=== PATIENT | male | born 1955 | race Caucasian/White ===

== ENCOUNTER 2022-10-05 16:48 | Emergency (ER) | payer MEDICARE, SELFPAY ==
[2022-10-05 17:03] VITALS: BP 137/78; PULSE 87; RESP 24; TEMP 37.9; O2SAT 95; BMI 30.1
[2022-10-05 17:54] LABS: PCR FLU A POSITIVE PCR FLU A (Negative); PCR FLU B Negative PCR FLU B (Negative); PCR RSV Negative PCR RSV (Negative)
[2022-10-05 17:56] LABS: SARS PCR* Negative SARS-CoV-2 (Negative)
--- NOTE | 2022-10-06 09:55 | ED.NURSE ---
attempted to call the patient for the second time. called the phone number in the chart and the phone message unable to leave a message then hung up. Unable to give the results of the positive influenza A.
== END 2022-10-05 19:27 | disposition left against medical advice (07) ==
DX: R05.9 Cough, unspecified (principal); R50.9 Fever, unspecified; Z53.21 Procedure and treatment not carried out due to patient leaving prior to being seen by health care provider
CPT/HCPCS: 87502; 87634; 87635; 99282

== ENCOUNTER 2025-04-16 08:58 | Emergency (ER) | payer MEDICARE, SELFPAY ==
[2025-04-16] VITALS (27 sets, daily range): BP systolic 103–133; BP diastolic 61–89; PULSE 73–103; RESP 13–22; TEMP 36.4; O2SAT 93–97; BMI 31.6
--- OUTSIDE RECORDS SUMMARY | 2025-04-16 09:09 | XMS_ITS | Clinical Summary ---
Author Organization [facility] Address [address] [place] [id number] Care Team Providers Care Car Worker Name Role Phone Nani Tran Mary Primary Care Provider [phone] Sherry Rueda MBBS Unavailable [phone] Allergies No known active allergies Medications aspirin (ECOTRIN) 81 mg enteric coated tabletIndication s:STEMI involving left anterior descending coronary artery (HC) Take 1 Tablet (81 mg) by mouth once daily. 90 Tablet 3 03/22/20 24 Active nitroglycerin (NITROSTAT) 0.4 mg sublingual tabletIndication s:STEMI involving left anterior descending coronary artery (HC) Place 1 Tablet (0.4 mg) under the tongue every 5 minutes if needed for Chest Pain (Up to 3 doses). 25 Tablet 2 03/22/20 24 Active metoprolol succinate (Toprol XL) 25 mg Sustained-Releas e tabletIndication s:Coronary artery disease, unspecified vessel or lesion type, unspecified whether angina present, unspecified whether [place] or transplanted heart Take 1 Tablet (25 mg) by mouth once daily. 90 Tablet 3 05/04/20 24 Active isosorbide mononitrate (IMDUR) 30 mg extended release tablet 24 HourIndications: Coronary artery disease, unspecified vessel or lesion type, unspecified whether angina present, unspecified whether [place] or transplanted heart Take 1 Tablet (30 mg) by mouth once daily. 90 Tablet 3 05/04/20 24 Active rosuvastatin 40 mg tabletIndication s:STEMI involving left anterior descending coronary artery (HC) TAKE ONE TABLET BY MOUTH EVERY DAY 60 Tablet 04/11/20 25 Active rosuvastatin (Crestor) 40 mg tabletIndication s:STEMI involving left anterior descending coronary artery (HC) Take 1 Tablet (40 mg) by mouth once daily. 90 Tablet 3 03/22/20 24 025 Discontinued Active Problems Problem Noted Date Diagnosed Date CAD (coronary artery disease) 04/04/2024 S/P coronary angiogram 04/04/2024 Chronic obstructive pulmonar y disease, unspecified COPD type 06/13/2023 ASHD (arteriosclerotic heart disease) 04/28/2020 Overview (04/28/2020): Coronary angiogram for anterior STEMI 04/27/20: s/p MURTAZA x1 to mLAD Sebaceous cyst of scrotum 11/22/2016 Adenomatous colon polyp 02/27/2014 Overview (01/10/2017): Colonoscopy 02/2014 polyps repeat in 1-2 years Colonoscopy 12/2016 hyperplastic polyp repeat in 5 years Dyslipidemia 05/28/2013 Plantar fasciitis 05/28/2013 Low testosterone 05/28/2013 Tinnitus 05/28/2013 Hearing loss in right ear 04/30/2013 Inguinal hernia, left 02/16/2010 Adjustment disorder with anxiety 04/26/2008 Smoker Family history of prostate cancer STEMI involving left anterior descending coronar y artery Resolved Problems Problem Noted Date Diagnosed Date Resolved Date Ankle pain, chronic 05/28/2013 11/21/19 15 Dyslipidemia 04/30/2013 11/21/2014 Ankle fracture 11/06/2010 08/06/2011 Encounters Date Type Department Care Team Description 04/10/2025 Refill [facility] [address] [place] [address] Sherry Rueda MBBS Refill Request (Rosuvastatin) from Last 3 Months Immunizations Immunization Administration Dates Next Due COVID-19 vaccine (Moderna 100mcg/0.5mL) MELLY 01/15/2021,12/18/2020 Td (Age >=7 Years) 09/20/2003 Tdap 04/30/2013 Zoster (Zostavax-ZVL, live) 03/05/2014 Family History Medical History Relation Name Comments Cancer-prostate Brother 2 half-brother Good Health Daughter Cancer Father unsure primary; spread to brain and lung possibly was stomach primary Other Father colon polyps Cancer-breast Mother Heart Disease Paternal Uncle mi in mid 50 's Good Health Sister 2 Relation Name Status Comments Brother 1 (Age 70) prostate c a Brother 2 Daughter Father (Age 80) Mother (Age 81) Paternal Uncle Sister 1 Alive Sister 2 Social History Tobacco Use Types Packs/Day Years Used Date Smoking Tobacco: Former Cigarettes 0.1 48 1 - 08/12/2021 Smokeless Tobacco: Never Tobacco Cessation:Counseling Given: Yes Alcohol Use Standard Drinks/Week Comments Yes 0 (1 standard drink = 0.6 oz pur e alcohol) rarely PHQ-2 Answer Date Recorded PHQ-2 TOTAL SCORE 0 10/10/2024 Social Connections Answer Date Recorded Do you often feel lonely or isolated from those around you? 0 10/10/2024 Financial Resource Strain Answer Date R ecorded Difficulty of Paying Living Expenses 3 10/10/2024 Difficulty of Paying Living Expenses Not on file 10/10/2024 Food Insecurity Answer Date Recorded Do you worry your food will run out before you are able to buy more? 1 10/10/2024 Transportation Needs Answer Date Record ed Does lack of transportation keep you from medica l appointments? 1 10/10/2024 Does lack of transportation keep you from work, meetings or getting things that you need? 1 10/10/2024 Housing Stability Answer Date Recorded What is your housing situation today? 1 10/10/2024 Utilities Answer Date Recorded Do you have trouble paying f or utilities (for example, heat, electricity, water, phone)? 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 Not on file Not on file Not on f ile Obstetrics History Last Filed Vital Signs Vital Sign Reading Time Taken Comments Blood Pressure 136/83 10/10/2024 7:44 AM NIGHT SHIFT SUPERVISOR Pulse 75 10/10/2024 7:44 AM NIGHT SHIFT SUPERVISOR Temperature 36.9 C (98.4 F) 10/10/2024 7:44 AM NIGHT SHIFT SUPERVISOR Respiratory Rate 16 05/04/2024 8:32 AM CDT Oxygen Saturation 96% 10/10/2024 7:44 AM NIGHT SHIFT SUPERVISOR Inhaled Oxygen Concentration - - Weight 97.2 kg (214 lb 4.8 oz) 10/10/2024 7:44 A M NIGHT SHIFT SUPERVISOR Height 173.5 cm (5' 8.31) 10/10/2024 7:44 AM CS T Body Mass Index 32.29 10/10/2024 7:44 AM NIGHT SHIFT SUPERVISOR Plan of Treatment Health Maintenance Due Date Last Done Comments Pneumococcal series for age 50+ (1 of 2 - PCV) 1973 Zoster (shingles) series for age 50+ (2 of 3) 04/30/2014 03/05/2014 RSV vaccine for adults or (1 - Risk 60-74 years 1-dose series) 2014 AAA screening age 65-74 2019 Colonoscopy through age 75 01/07/202201/07, 01/07/2017, 02/26/2014, Additional history exists Tetanus booster 04/30/2023 04/30/2013, 09/20/2003 COVID-19 vaccine series ( season) 2024 10/15/2021, 01/15/2021, 12/18/2020 Influenza Vaccine (Season Ended) 2025 BMI (ht and wt on same day) for age 18+ 10/10/2025 10/10/2024, 05/04/2024, 03/22/2024, Additional history exists Depression screening for age 12+ 10/10/2025 10/10/2024, 06/13/2023, 04/23/2022, Additional history exists Medicare Wellness for age 65+ 10/11/2025 10/10/2024, 06/13/2023 Lipids for age 45-75 10/10/2029 10/10/2024, 04/03/2024, 03/22/2024, Additional history exists Tdap Completed 04/30/2013 Hepatitis C screening for age 18-79 Completed 06/13/2023 Hepatitis B series for 19+ Aged Out N o longer eligible based on patient's age to complete this topic Medical Devices Implanted Type Area Ensemble Member Device Identifier Shelf Expiration Date Model / Serial / Lot Plate 3 Tubular 61mm 5 Hole W/Collar 241.35 Synthe - [id number] Implanted:Qty : 1 on 11/06/2010 at [facility] Imp.,Screw s & Plates Left: Ankle Depuy AIT 241.35# / / / [id number] Screw Cortex 3.5x16mm Self Tapping 204.816 Synthes - [id number] Implanted:Qty : 1 on 11/06/2010 at [facility] Left: Ankle Depuy AIT 204.816# / / [id number] Screw Cortex 3.5x18mm Self Tapping 204.818 Synthes - [id number] Implanted:Qty : 1 on 11/06/2010 at [facility] Left: Ankle Depuy AIT 204.818# / / / [id number] Screw Cortex 3.5x20mm Self Tapping 204.820 Synthes - [id number] Implanted:Qty : 2 on 11/06/2010 at [facility] Left: Ankle Depuy AIT 204.820# / / [id number] Screw Canclls 4.0x16mm Full Thread 206.016 Synt - [id number] Implanted:Qty : 1 on 11/06/2010 at [facility] Left: Ankle Depuy AIT 206.016# / / [id number] Procedures Procedure Name Priority Date/Time Associated Diagnosis Comments LIPID PANEL W REFLEX MEASURED LDL Routine 10/10/2024 9:00 AM NIGHT SHIFT SUPERVISOR Screening cholesterol level LC HCV ANTIBODY RFX TO QUANT PCR Routine 06/13/2023 5:03 PM CDT Need for hepatitis C screening test COLONOSCOPY 01/07/2017 11:02 AM CDT from Last 3 Months or Most Recently Relevant to Health Maintenance Results * (ABNORMAL) LIPID PANEL W REFLEX MEASURED LDL (10/10/2024 9:00 AM NIGHT SHIFT SUPERVISOR) CHOLESTEROL, TOTAL 78 <200 mg/dL [facility] HDL CHOLESTEROL 25(L) > OR = 40 mg/dL [facility] TRIGLYCERIDES 127 <150 mg/dL [facility] LDL-CHOLESTEROL 32 mg/dL (calc) [facility] Comment: Reference range: <100 Desirable range <100 mg/dL for primary prevention; <70 mg/dL for patients with CHD or diabetic patients with > or = 2 CHD risk factors. LDL-C is now calculated using the Esa calculation, which is a validated novel method providing better accuracy than the Friedewald equation in the estimation of LDL-C. Jonathon SS et al. IOANA. 2013;310(44): 3473-2913 (http://education.Ferfics/faq/KHA695) CHOL/HDLC RATIO 3.1 <5.0 (calc) [facility] NON HDL CHOLESTEROL 53 <130 mg/dL (calc) [facility] Comment: For patients with diabetes plus 1 major ASCVD risk factor, treating to a non-HDL-C goal of <100 mg/dL (LDL-C of <70 mg/dL) is considered a therapeutic option. Blood BLOOD SPECIMEN / Unknown 10/10/2024 9:00 AM NIGHT SHIFT SUPERVISOR 10/10/2024 9:05 AM NIGHT SHIFT SUPERVISOR Andrew Davis MD CHEMISTRY Final Re sult Link Trigger [facility] [address] [place] [address], [facility] [address] [place] [address] * LC HCV ANTIBODY RFX TO QUANT PCR (06/13/2023 5:03 PM CDT) HCV Ab Non Reactive Non Reactive 06/16/2023 1:09 PM CDT [facility] Blood BLOOD SPECIMEN / Unknown Add On / Unknown 06/13/2023 5:03 PM CDT 06/14/2023 9:02 AM CDT Narrative [facility] - 06/16/2023 1:09 PM CDT Performed at: [facility] [address] [facility], [place], [place] [id number] Purification Operator Helper: Arcadio Mcgraw MD, Phone: [phone] us Denisha Haq Regis [employer]EL[employer] LAB[employer]AT[employer] F inal Result [facility] [place] [address], * COLONOSCOPY (01/07/2017 11:02 AM CDT) 01/07/2017 11:0 2 AM CDT Narrative Transcriptions Jonathon Vaz MD - 01/07/2017 12:01 PM CDT Patient Name: Kristopher Woods Procedure Date: 01/07/2017 Gender: Male Date of : 1955 Admit Type: Outpatient Procedure: Colonoscopy Proceduralist: Jonathon Vaz MD , Odalys Hawkins (Nurse) Indications/Pre-Op Diagnosis: Surveillance: Personal history ofadenomatous polyps on last colonoscopy > 3 years ago Medications: None Procedure Description: The patient had risks, benefits and alternatives explained to andgave informed consent. The patient had a stable cardiopulmonary status and judged an adequate candidate for conscious sedation. The [id number] was passed through the anus and advanced tothe cecum, identified by appendiceal orifice and ileocecal valve. The colonoscopy was performed without difficulty. The patient toleratedthe procedure well. The quality of the bowel preparation was excellent.The ileocecal valve, appendiceal orifice, and rectum were photographed. Complications: No immediate complications. Estimated Blood Loss & Specimen: Estimated blood loss: none. Specimen collected - Yes and sent to Laboratory Findings: The perianal and digital rectal examinations were normal. A 2 mm polyp was found in the sigmoid colon. The polyp was sessile.The polyp was removed with a cold biopsy forceps. Resection and retrieval were complete. The exam was otherwise without abnormality on direct and retroflexion views. Impressions/Post-Op Diagnosis: - One 2 mm polyp in the sigmoid colon, removed with a cold biopsy forceps. Resected and retrieved. - The examination was otherwise normal on direct and retroflexionviews. Recommendation: - Patient has a contact number available for emergencies. The signsand symptoms of potential delayed complications were discussed with the patient. Return to normal activities tomorrow. Written discharge instructions were provided to the patient. - Resume previous diet. - Continue present medications. - Await pathology results. - Repeat colonoscopy in 5 years for surveillance. - For future colonoscopy the patient will require an extended preparation. If there are any questions, please contact the facilities manager. Moderate Sedation: None Jonathon Vaz MD 01/07/2017 12:01:23 PM This report has been signed electronically. Note Initiated On: 01/07/2017 11:02 AM Procedure Code(s): --- Professional --- 72825, Colonoscopy, flexible; with biopsy, single or multiple Diagnosis Code(s): --- Professional --- Z86.010, Personal history of colonicpolyps D12.5, Benign neoplasm of sigmoid colon CPT copyright 2016 [employer]. All rights reserved. The codes documented in this report are preliminary and upon underwriting assistant reviewmay be revised to meet current compliance requirements. Scope In: 11:35:13 AM Scope Withdrawal Time 0 hours 11 minutes 58 seconds Scope Out: 11:55:46 AM us Jonathon Vaz MD PROCEDURE ORD Final Res ult from Last 3 Months or Most Recently Relevant to Health Maintenance Insurance MEDICARE PART A HB ONLY MEDICARE ADVANTAGE MR [facility] Advance Directives * Full Code (Latest Code Status on File) Date Activated Date Inactivated Comments 04/03/2024 4:50 PM 04/03/2024 9:25 PM Question Answer Comments Code Status Discussion: Reviewed Preferences * Full Code Date Activated Date Inactivated Comments 04/27/2020 8:43 PM 04/30/2020 1:13 PM * Full Code Date Activated Date Inactivated Comments 11/06/2010 9:29 AM 11/06/2010 7:21 PM * Full Code Date Activated Date Inactivated Comments 11/06/2010 7:26 AM 11/06/2010 9:29 AM Care Teams Car Worker Relationship Specialty Start Date End Date Nani Tran DO [address] [place] [address] PCP - General Family Practice 04/23/22 Sherry Rueda MBBS [address] [place] [address] Cardiovascular Disease 05/03/24
--- NOTE | 2025-04-16 09:23 | XR_ITS ---
Patient: LION LEROY Facility:?[facility] Patient ID:?[id number] Site Patient ID:?[id number]. Site :?1955 Study:?XRay-Chest 2V-04/16/2025 10:06:17 AM Ordering Physician:Rozina Pinto Final Report: INDICATION: Chest pain. TECHNIQUE: Chest 2 views. COMPARISON: 04/27/2020. FINDINGS: Lungs and pleural spaces: No consolidation. No pleural effusion. No pneumothorax. Cardiovasculature and mediastinum: Heart size and mediastinal contours are normal. IMPRESSION: No acute cardiopulmonary abnormality. Dictated by Michael Covington MD @ 04/16/2025 10:18:10 AM Signed by:?Michael Covington MD @04/16/2025 10:18:10 AM (Electronic Signature)
--- NOTE | 2025-04-16 09:38 | ED_ITS ---
HPI - Arrhythmia/Palpitations General Date Seen: 04/16/25 Chief Complaint: Arrhythmia/Palpitations Stated Complaint: heart racing- some shortness of breath Time Seen by Provider: 04/16/25 09:07 Source: patient Mode of arrival: ambulatory Limitations: no limitations History of Present Illness HPI narrative: Patient is a very nice 69-year-old gentleman who presents here with a racing heart, he woke up this morning with the racing heart approximately at 7:00 a.m., was associated with some sweet sweating and feeling short of breath, this is now resolved, he has been out of metoprolol for the last 3 days which she normally takes, chronically. He says he just for got to renew the prescription. He did take 1 nitroglycerin this morning, noted this may have helped his discomfort. Has a history of 5 years ago of a heart attack he describes. Has been good otherwise no exertional chest pain no leg swelling, no cough, no hemoptysis, no past history DVT or pulmonary embolisms, other than the metoprolol he has been taking his medications normally. Denies any significant use of alcohol, or dehydration. He did not have any chest pain with this. Did not know if his heart was irregular or regular. MD complaint: heart racing and palpitations Onset (ago): hour(s) Duration: now resolved Severity: moderate Context: awoke with symptoms Associated symptoms: shortness of breath and diaphoresis Treatments prior to arrival: other Related Data Home Medications ?Medication ?Instructions ?Recorded ?Confirmed atorvastatin 80 mg tablet 40 mg 10/05/22 clopidogrel 75 mg tablet mg 10/05/22 lisinopril 5 mg tablet mg 10/05/22 metoprolol succinate 25 mg 25 mg PO 10/05/22 tablet,extended release 24 hr aspirin 81 mg tablet,delayed 81 mg PO DAILY 04/16/25 0 04/16/25 release (Adult Aspirin Regimen) isosorbide mononitrate 30 mg 30 mg PO DAILY 04/16/25 0 04/16/25 tablet,extended release 24 hr rosuvastatin 40 mg tablet 40 mg PO DAILY 04/16/2503/25 Previous Rx's ?Medication ?Instructions ?Recorded metoprolol succinate 25 mg capsule 25 mg PO DAILY #30 ea 04/16/25 sprinkle, ext. release 24 hr Allergies Allergy/AdvReac Type Severity Reaction Status Date / Time No Known Drug Allergies Allergy Verified 10/05/22 17:07 Review of Systems Status of ROS: Reports: 10 or more systems reviewed and unremarkable except as noted in History and below [facility] Social History Smoking Status: Current some day smoker How often do you have a drink containing alcohol: monthly or less AUDIT-C Alcohol total score: 1 Non-prescribed substance use: denies use Exam Narrative: Exam Narrative: On examination in room 5 he is in no apparent distress he is pleasant alert pupils equal round reactive to light there is no scleral icterus redness TMs are normal oropharynx normal there is no adenopathy anterior posterior chains, chest is good air entry bilaterally no wheezing crackles noted heart sounds are normal his abdomen is soft and obese there is no guarding no organomegaly bowel sounds are normal moves all extremities independently and well, no edema, skin reveals no petechiae rashes. And neurologically intact his upper lower extremities moving all extremities well, cranial nerves 3-12 are normal. Nontoxic, Const: Vital Signs, click to edit/add: Vital Signs - 24 hr 04/16/25 09:05 04/16/25 09:19 04/16/25 09:22 Temperature 97.5 F L Pulse Rate 100 101 H Pulse Rate [Pulse Oximeter] 103 H Respiratory Rate 18 Blood Pressure 111/61 103/79 Blood Pressure [Ri ght Upper Arm] 128/71 Pulse Oximetry 96 96 93 Oxygen Delivery Me thod Room Air 04/16/25 09:23 04/16/25 09:30 04/16/25 09:42 Temperature Pulse Rate 99 100 Pulse Rate [Pulse Oximeter] Respiratory Rate 14 22 Blood Pressure 106/73 Blood Pressure [Ri ght Upper Arm] Pulse Oximetry 94 94 94 Oxygen Delivery Me thod 04/16/25 09:45 04/16/25 10:03 04/16/25 10:04 Temperature Pulse Rate 99 98 96 Pulse Rate [Pulse Oximeter] Respiratory Rate 16 20 17 Blood Pressure 133/85 Blood Pressure [Ri ght Upper Arm] Pulse Oximetry 95 93 96 Oxygen Delivery Me thod 04/16/25 10:15 04/16/25 10:22 04/16/25 10:30 Temperature Pulse Rate 97 97 93 Pulse Rate [Pulse Oximeter] Respiratory Rate 13 19 Blood Pressure 121/75 Blood Pressure [Ri ght Upper Arm] Pulse Oximetry 95 96 94 Oxygen Delivery Me thod 04/16/25 10:41 04/16/25 10:45 04/16/25 11:00 Temperature Pulse Rate 91 90 90 Pulse Rate [Pulse Oximeter] Respiratory Rate 19 16 Blood Pressure 121/87 Blood Pressure [Ri ght Upper Arm] Pulse Oximetry 94 94 96 Oxygen Delivery Me thod 04/16/25 11:02 04/16/25 11:15 04/16/25 11:22 Temperature Pulse Rate 88 83 79 Pulse Rate [Pulse Oximeter] Respiratory Rate 20 Blood Pressure 117/81 111/88 Blood Pressure [Ri ght Upper Arm] Pulse Oximetry 93 93 95 Oxygen Delivery Me thod 04/16/25 11:23 04/16/25 11:30 04/16/25 11:42 Temperature Pulse Rate 80 78 76 Pulse Rate [Pulse Oximeter] Respiratory Rate 14 15 15 Blood Pressure 129/89 Blood Pressure [Ri ght Upper Arm] Pulse Oximetry 93 93 94 Oxygen Delivery Me thod 04/16/25 11:45 04/16/25 12:00 04/16/25 12:02 Temperature Pulse Rate 76 73 73 Pulse Rate [Pulse Oximeter] Respiratory Rate 16 Blood Pressure 113/83 Blood Pressure [Ri ght Upper Arm] Pulse Oximetry 96 97 96 Oxygen Delivery Me thod 04/16/25 12:15 04/16/25 12:22 04/16/25 12:30 Temperature Pulse Rate 73 74 74 Pulse Rate [Pulse Oximeter] Respiratory Rate 14 Blood Pressure 105/79 Blood Pressure [Ri ght Upper Arm] Pulse Oximetry 95 94 95 Oxygen Delivery Me thod Course Course ED Course: [place] remains pain-free showed shortness of breath is gone, vital signs remain stable, we given a dose of metoprolol here, his troponins are normal x2. I think it is likely that this is because he missed his medications I have given a prescription for 30 days and will have him follow-up with his regular physician. Vital Signs Vital signs: Initial Vital Signs Temperature 97.5 F L 04/16/25 09:05 Temperature Source Temporal Artery Scan 04/16/25 09:05 Pulse Rate 103 H 04/16/25 09:05 Respiratory Rate 18 04/16/25 09:05 Blood Pressure 128/71 04/16/25 09:05 Blood Pressure Mean 90 04/16/25 09:05 Pulse Oximetry 96 04/16/25 09:05 Oxygen Delivery Method Room Air 04/16/25 09:05 Vital Signs Temperature 97.5 F L 04/16/25 09:05 Pulse Rate 103 H 04/16/25 09:05 Respiratory Rate 18 04/16/25 09:05 Blood Pressure 128/71 04/16/25 09:05 Pulse Oximetry 96 04/16/25 09:05 Oxygen Delivery Method Room Air 04/16/25 09:05 Temperature 97.5 F L 04/16/25 09:05 Pulse Rate 74 04/16/25 12:30 Respiratory Rate 14 04/16/25 12:15 Blood Pressure 105/79 04/16/25 12:22 Pulse Oximetry 95 04/16/25 12:30 Oxygen Delivery Method Room Air 04/16/25 09:05 Medications Administered Medications: Discontinued Medications Generic Name Dose Route Start Last Admin Trade Name Freq PRN Reason Stop Dose Admin Aspirin 324 mg 04/16/25 09:23 04/16/25 09:45 Aspirin 81 Mg Tab.Chew PO 04/16/25 09:24 324 mg ONCE ONE Administration Sodium Chloride 1,000 mls @ 1,000 mls/hr 04/16/25 09:30 04/16/25 10:50 0.9 % Sodium Chloride 1000 Ml IV 04/16/25 10:29 Infused .Q1H KAIA Infusion Metoprolol Succinate 25 mg 04/16/25 10:14 04/16/25 10:25 Metoprolol Succinate (Xl) 25 Mg Tab PO 04/16/25 10:15 25 mg ONCE ONE Administration MDM - Arrhythmia/Palpitations MDM Narrative Medical decision making narrative: Differential diagnosis includes but is not limited to psychosocial stress, thyroid abnormalities, CHF, SVT, atrial fibrillation, ventricular tachycardia and ventricular fibrillation. This includes the life-threatening complications of heart failure, V-tach, and VFib Medical Records Attestation: I reviewed the patient's medical records. Lab Data Attestation: I reviewed the patient's lab results. Labs: Lab Results 04/16/25 04/16/25 Range/Units 09:23 09:30 WBC 8.90 (4.50-11.00) K/uL RBC 5.13 (4.30-5.90) m/uL Hgb 15.3 (13.5-17.5) gm/dL Hct 46.7 (37.0-53.0) % MCV 91 (80-100) fL MCH 30 (26-34) pg MCHC 33 (32-36) gm/dL RDW Coeff of Jonathan 13.0 (11.5-15.5) % Plt Count 256 (140-440) K/uL Neut % (Auto) 66.5 (42.0-72.0) % Lymph % (Auto) 21.7 (20-44) % Sherman % (Auto) 5.6 (0.0-11.0) % Eos % (Auto) 5.5 (0.0-7.0) % Baso % (Auto) 0.6 (0.0-3.0) % Neut # (Auto) 5.92 (1.7-7.0) K/uL Lymph # (Auto) 1.93 (0.90-2.90) K/uL Sherman # (Auto) 0.50 (0.00-0.90) K/UL Eos # (Auto) 0.49 (0.00-0.50) K/uL Baso # (Auto) 0.05 (0.00-0.30) K/uL Abs Immat Gran (auto) 0.01 (0.00-0.30) K/uL Imm/Tot Granulo (auto) 0.1 % INR 0.89 L (0.91-1.10) APTT 27 (23-33) Seconds D-Dimer Quant (PE/DVT) 0.63 H (0.00-0.50) ug/ml Sodium 135 (135-149) mmol/L Potassium 4.3 (3.6-5.1) mmol/L Chloride 103 (96-114) mmol/L Carbon Dioxide 24 (20-32) mmol/L Anion Gap 8 (7-15) mEq/L BUN 13 (7-30) mg/dL Creatinine 1.2 (0.5-1.5) mg/dL Estimated Creat Clear 59.14 Estimated GFR 65 ml/min Glucose 212 H (60-115) mg/dL Calcium 9.0 (8.4-10.6) mg/dL NT-Pro-B Natriuret Pep 88 (See Note) pg/mL POC Troponin I 0.00 L (0.01-0.04) ng/ml Imaging Data Chest x-ray: Attestation: I have reviewed the pertinent imaging results. My impression: No acute finding ECG Data Attestation: I personally reviewed and interpreted this ECG as follows: ECG interpretation date: 04/16/25 Interpretation: Initial EKG shows normal sinus rhythm, with a ventricular rate of 99. Mild left axis deviation is noted, poor R-wave progression is noted across the precordial leads, QRS is 88 milliseconds QT is 352 and QTC is 452, no acute ST wave changes. 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 Follow-up EKG shows no acute findings. Discharge Plan Discharge Clinical Impression: Palpitations Patient Disposition: Home, Self-Care Condition: Stable Instructions: Heart Palpitations (DC) Additional Instructions: Home, rest and use of the medications, There was no evidence of problems on the testing, I suspect a lot of this is because of being off the metoprolol. Activity Level: Light activity Prescriptions: New metoprolol succinate 25 mg capsule,sprinkle,ER 24hr 25 mg PO DAILY Qty: 30 0RF No Action atorvastatin 80 mg tablet 40 mg Patient Comments: TAKE ONE TABLET BY MOUTH EVERY EVENING clopidogrel 75 mg tablet Patient Comments: TAKE ONE TABLET BY MOUTH EVERY MORNING lisinopril 5 mg tablet Patient Comments: TAKE ONE TABLET BY MOUTH EVERY DAY metoprolol succinate 25 mg tablet extended release 24 hr 25 mg PO Patient Comments: TAKE THREE TABLETS BY MOUTH EVERY DAY rosuvastatin 40 mg tablet 40 mg PO DAILY isosorbide mononitrate 30 mg tablet extended release 24 hr 30 mg PO DAILY aspirin [Adult Aspirin Regimen] 81 mg tablet,delayed release (DR/EC) 81 mg PO DAILY Follow Up/Referrals: Provider,Not a Local [Primary Care Provider, Family Practice] Stand Alone Forms: [employer] Info Instructions
[2025-04-16 09:43] LABS: Basophils Absolute Auto 0.05 K/uL (0.00-0.30); Basophils Percent Auto 0.6 % (0.0-3.0); Eosinophils Absolute Auto 0.49 K/uL (0.00-0.50); Eosinophils Percent Auto 5.5 % (0.0-7.0); Hematocrit 46.7 % (37.0-53.0); Hemoglobin* 15.3 gm/dL (13.5-17.5); Immature Granulocytes Abs Auto 0.01 K/uL (0.00-0.30); Immature Granulocytes Pct Auto 0.1 %; Lymphocytes Absolute Auto 1.93 K/uL (0.90-2.90); Lymphocytes Percent Auto 21.7 % (20-44); Mean Corpuscular HGB Conc 33 gm/dL (32-36); Mean Corpuscular Hemoglobin 30 pg (26-34); Mean Corpuscular Volume 91 fL (80-100); Monocytes Percent Auto 5.6 % (0.0-11.0); Neutrophils Absolute Auto 5.92 K/uL (1.7-7.0); Neutrophils Percent Auto 66.5 % (42.0-72.0); Platelet Count* 256 K/uL (140-440); Red Blood Count 5.13 m/uL (4.30-5.90); Slide Review Reflex No
[2025-04-16] MEDS: 0.9 % SODIUM CHLORIDE 1000 ml 1,000 ML IV (09:45)
[2025-04-16] MEDS: ASPIRIN 81 MG TAB.CHEW 324 MG PO (09:45)
[2025-04-16 09:58] LABS: Chloride* 103 mmol/L (96-114); Potassium* 4.3 mmol/L (3.6-5.1); Sodium* 135 mmol/L (135-149)
[2025-04-16 10:01] LABS: Anion Gap 8 mEq/L (7-15); Blood Urea Nitrogen* 13 mg/dL (7-30); Carbon Dioxide* 24 mmol/L (20-32); Creatinine* 1.2 mg/dL (0.5-1.5); Est. Creatinine Clearance* 59.14; Estimated Glomerular Filt Rate 65 ml/min; Glucose* 212 mg/dL (60-115)
[2025-04-16 10:04] LABS: INR 0.89 (0.91-1.10); Prothrombin Time 12.8 Seconds
[2025-04-16 10:05] LABS: Partial Thromboplastin Time* 27 Seconds (23-33)
[2025-04-16 10:15] LABS: NT Pro B Type NatriureticPept* 88 pg/mL (See Note)
[2025-04-16 10:23] LABS: D Dimer Quantitative* 0.63 ug/ml (0.00-0.50)
[2025-04-16] MEDS: METOPROLOL SUCCINATE (XL) 25 MG TAB PO (10:25)
[2025-04-16 12:41] LABS: Troponin, Point-of-Care* 0.02 ng/ml (0.01-0.04)
== END 2025-04-16 13:03 | disposition home or self-care (01) ==
PROVIDERS: Emergency Provider Family Medicine
DX: R00.2 Palpitations (principal); R06.02 Shortness of breath
CPT/HCPCS: 36415; 71046; 80048; 83880; 84484; 85025; 85379; 85610; 85730; 93005; 94761; 96360; 99284; 99285; A9270; J7030